=== PATIENT | male | born 1970 | race Caucasian/White ===

== ENCOUNTER 2017-10-26 21:43 | Observation (INO) ==
[2017-10-27] MEDS ORDERED: Naloxone 0.4 MG/ML INJ IVP PRN (01:11)
[2017-10-27] MEDS: *HR* OxyCODONE Immed Rel 5 MG TABLET PO PRN ×3 (01:31→17:34)
[2017-10-27] MEDS: 0.9 % Sodium Chloride 1,000 ML IVC SCH ×2 (01:32→09:21)
[2017-10-27] MEDS ORDERED: Ondansetron 4 MG/2 ML VIAL IVP PRN (02:20)
[2017-10-27] MEDS ORDERED: OXYCODONE Oral CONC 10 MG/0.5 ML ORAL.SYG SL PRN ×2 (02:21)
[2017-10-27 02:32] LABS: Basophils % 0.2 %; Eosinophils # 0.2 K/mcL (0.0-0.6); Hematocrit 46.7 % (37.5-50.1); Hemoglobin 15.9 g/dL (12.9-16.9); Immature Granulocytes % 0.5 % (0-4); Lymphocytes # 1.7 K/mcL (0.6-4.6); Mean Corpuscular Hemoglobin 27.3 pg (28.0-33.3); Mean Corpuscular Volume 80.1 fL (83.0-100.0); Mean Platelet Volume 9.9 fL (9.4-12.4); Monocytes # 0.9 K/mcL (0.0-1.3); Monocytes % 6.1 %; Neutrophils # 12.3 K/mcL (1.6-8.9); Platelet Count 272 K/mcL (140-400); Red Blood Count 5.83 M/mcL (4.19-5.50); Red Cell Distribution Width 13.3 % (11.5-14.5); Segmented Neutrophils % 81.2 %
--- NOTE | 2017-10-27 02:47 | Internal Med History&Physical ---
<Jamir Spears - Last Filed: 10/27/17 02:42> Date of Encounter: 10/27/17 Time of Encounter: 02:42 Internal Medicine - H&P: HPI Chief complaint: Abdominal pain Admitted From: Home Plans for Post Hospital Care: Home History of present illness: Mr. Tyrell Holguin is a 46 year old male presented chief complaint of abdominal pain that has been there for 5 weeks. Patient initially presented to [place] [facility]. Abdominal pain is located at the level of umbilicus and below bilaterally described as a sharp, cramping pain that is intermittent, worsens with bowel movement, position. Patient's pain radiates to the back. Reports that improves with Tylenol. Patient denies fevers, chills, nausea, vomiting, diarrhea, melena, hematochezia. Patient denies travel, sick contacts. Patient went CT abdomen pelvis which showed diverticulitis with 2 sigmoid abdominal abscesses with free fluid in the pelvis. Dr. Chaparro was consulted and patient was transferred to [place] for further care. He was given Cipro, Flagyl. 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 Past Med Surg Social Fam HX - Past Medical History Medical history: no medical history Psychiatric history: no psych history - Past Surgical History Additional surgical history: fistula removed - Social History Smoking Status: Never smoker Smokeless Tobacco Status: No Alcohol use: none Drug use: none Occupational status: employed Current living situation: Home - Independent Activity Level: Independent ambulation - Family History Father Hx Family Cardiac Disorders: Yes Mother Hx Family Cardiac Disorders: Yes Internal Medicine - H&P: Meds No Known Home Drugs 10/26/17 [History] 3 Allergy/AdvReac Type Severity Reaction Status Date / Time No Known Allergies Allergy Verified 10/26/17 17:47 All Systems PM: A 10-system review of systems was performed and is negative for pertinent findings except as documented above in the HPI. Review of systems: Constitutional: Denies fever, chills HEENT: Denies headache, vision changes, neck pain, sore throat, rhinorrhea Heart: Denies chest pain palpitations Lungs: Denies shortness of breath cough Abdomen: Ports abdominal pain. Denies nausea, vomiting, diarrhea Back: Denies back pain Kidney: Denies dysuria, hematuria Skin: Denies rash, lesions Extremities: Denies swelling, pain Neuro: Denies numbness and tingling - Constitutional Vitals: Temp Pulse Resp BP Pulse Ox 98.7 F 78 16 178/98 96 10/27/17 01:10 10/27/17 01:10 10/27/17 01:10 10/27/17 01:10 10/27/17 01:10 Exam: General: Pleasant without distress HEENT: Head atraumatic, normocephalic, EOMI, PERRL, neck nontender to palpation , absent lymphadenopathy, Moist Mucous Membranes, Heart: Regular rate and rhythm with no murmur Lungs: Clear to auscultation bilaterally Abdomen: Soft, tender bilateral lower quadrants, distended, positive bowel sounds Skin: warm and dry, absent rash Extremities: Absent pedal edema, Neuro: Cranial nerves II through XII intact, UE and LE sensation equal bilaterally, UE and LEstrength 5/5, alert oriented 3, Gait intact, rhombergs sign negative, Vascular: Pedal and radial pulses 2 out of 4 Internal Med - H&P Results - Labs CBC & Chem 7: 10/27/17 02:19 Labs: Short CBC 10/27/17 Range/Units 02:19 WBC 15.1 H (4.3-11.1) K/mcL Hgb 15.9 (12.9-16.9) g/dL Hct 46.7 (37.5-50.1) % Plt Count 272 (140-400) K/mcL Neutrophils # 12.3 H (1.6-8.9) K/mcL - Assessment and plan (1) Diverticulitis Current Visit: Yes Status: Acute Assessment and plan: 46-year-old male presents with abdominal pain for the last [address] abdomen pelvis which showed extensive sigmoid diverticulosis, enhancing fluid collection deep in the pelvis measuring 2.7 x 1.4 cm and free fluid in the pelvis with a deep pelvic abscess measuring 3.1 x 2.2 cm he reports he had a "fistula" in the abdomen which was repaired in [place] around 4-5 years ago. Patient has elevated white cell count of 14 Lactic acid is 1.5 Does not meet sepsis criteria Surgery was consulted and patient was started on IV antibiotics Blood cultures have been drawn Patient was started on Cipro Flagyl Nothing by mouth Zofran for nausea IV fluids (2) Intestinal diverticular abscess Current Visit: Yes Status: Acute Assessment and plan: As mentioned above (3) Right lower lobe pulmonary nodule Current Visit: Yes Status: Acute Assessment and plan: CT abdomen pelvis showed a 6 mm noncalcified pulmonary nodule in the lateral aspect of the right lower lobe Patient denies history of smoking but reports secondhand exposure from family Will advise 6 month follow-up with PCP for repeat CAT scan (4) DVT prophylaxis Current Visit: Yes Status: Acute Assessment and plan: Heparin subcutaneous - Time Spent With Patient Total time spent is greater than 50% in coordination of care (as documented) at patient's floor/unit and/or counseling patient: <Uriel Marks - Last Filed: 10/27/17 08:10> Date of Encounter: 10/27/17 Internal Medicine - H&P: HPI History of present illness: Mr. Tyrell Holguin is a 46 year old male All Systems PM: A 10-system review of systems was performed and is negative for pertinent findings except as documented above in the HPI. - Constitutional Vitals: Temp Pulse Resp BP Pulse Ox 98.9 F 80 16 154/86 96 10/27/17 07:53 10/27/17 07:53 10/27/17 07:53 10/27/17 07:53 10/27/17 07:53 Internal Med - H&P Results - Labs CBC & Chem 7: 10/27/17 02:19 10/27/17 02:19 Labs: Short CBC 10/27/17 Range/Units 02:19 WBC 15.1 H (4.3-11.1) K/mcL Hgb 15.9 (12.9-16.9) g/dL Hct 46.7 (37.5-50.1) % Plt Count 272 (140-400) K/mcL Neutrophils # 12.3 H (1.6-8.9) K/mcL BMP 10/27/17 02:19 Sodium 135 L Potassium 4.3 Chloride 102 Carbon Dioxide 26 BUN 14 Creatinine 0.87 Glucose 139 H Calcium 8.9 Liver Function 10/27/17 Range/Units 02:19 Total Bilirubin 0.9 (0.3-1.0) mg/dL AST 12 L (13-39) Units/L ALT 25 (7-52) Units/L Alkaline Phosphatase 47 (34-104) Units/L Albumin 4.1 (3.5-5.7) g/dL - Assessment and plan (1) Diverticulitis Current Visit: Yes Status: Acute (2) Intestinal diverticular abscess Current Visit: Yes Status: Acute (3) Right lower lobe pulmonary nodule Current Visit: Yes Status: Acute (4) DVT prophylaxis Current Visit: Yes Status: Acute - Time Spent With Patient Total time spent is greater than 50% in coordination of care (as documented) at patient's floor/unit and/or counseling patient: - Attending Attestation Patient seen and examined. Case discussed with resident. Acute diverticulitis with abscess and free fluid. Surgery aware. We will continue antibiotics for now. Surgery following the morning.
[2017-10-27 02:52] LABS: Alanine Aminotransferase 25 Units/L (7-52); Albumin 4.1 g/dL (3.5-5.7); Albumin/Globulin Ratio 1.6 (1.1-2.2); Alkaline Phosphatase 47 Units/L (34-104); Aspartate Amino Transferase 12 Units/L (13-39); BUN/Creatinine Ratio 16 (6-26); Bilirubin,Total 0.9 mg/dL (0.3-1.0); Blood Urea Nitrogen 14 mg/dL (6-20); Calcium 8.9 mg/dL (8.6-10.3); Carbon Dioxide 26 mEq/L (23-29); Chloride 102 mEq/L (98-107); Globulin 2.5 g/dL (2.4-3.5); Glucose 139 mg/dL (70-105); Osmolality,Calculated 283 (280-300); Potassium 4.3 mEq/L (3.5-5.1); Sodium 135 mEq/L (136-145); Total Protein 6.6 g/dL (6.4-8.9); eGFR For Non-African Americans > 60 (> 60)
[2017-10-27] MEDS: *HR* Heparin 5,000 UNIT/ML VIAL SQ SCH ×3 (05:38→20:51)
[2017-10-27] MEDS: MetroNIDAZOLE 500 MG/100 ML 500 MG/100 ML BAG IVPB SCH ×3 (05:39→17:34)
--- NOTE | 2017-10-27 13:41 | Internal Med Progress Note ---
Hospitalist Progress Note - Encounter Date of Encounter: 10/27/17 Time of Encounter: 13:33 - Subjective Interval History: Continue to have left lower quadrant abdominal pain, intermittent nausea without vomiting. Reports the pain of an ongoing for approximately 5 weeks. No acute changes overnight otherwise. - Exam Vitals: Temp Pulse Resp BP Pulse Ox 98.5 F 78 15 178/100 95 10/27/17 10:56 10/27/17 10:56 10/27/17 10:56 10/27/17 10:56 10/27/17 10:56 Exam: PHYSICAL EXAMINATION: GENERAL: The patient is a well-developed, well-nourished male with mild distress due to abdominal discomfort. He is alert and oriented x3. HEENT: Head is normocephalic and atraumatic. Extraocular muscles are intact. Pupils are equal, round, and reactive to light and accommodation. NECK: Supple. No carotid bruits. No lymphadenopathy or thyromegaly. LUNGS: Clear to auscultation. HEART: Regular rate and rhythm without murmur. ABDOMEN: Soft, and nondistended. Positive bowel sounds. No hepatosplenomegaly was noted. Mild left lower quadrant tenderness to palpation, without rebound, abdomen does not appear to be acute - Assessment and Plan (1) Diverticulitis Current Visit: Yes Status: Acute Assessment and Plan: 46-year-old male presents with abdominal pain for the last [address] abdomen pelvis which showed extensive sigmoid diverticulosis, enhancing fluid collection deep in the pelvis measuring 2.7 x 1.4 cm and free fluid in the pelvis with a deep pelvic abscess measuring 3.1 x 2.2 cm he reports he had a "fistula" in the abdomen which was repaired in [place] around 4-5 years ago. Leukocytosis with WBC of 14 Lactic acid is 1.5 Does not meet sepsis criteria Surgery to see in consultation-awaiting recommendations continue ABX cipro and flagyl Blood cultures pending; follow Patient was started on Cipro Flagyl Nothing by mouth Zofran for nausea IV fluids analgesia (2) Intestinal diverticular abscess Current Visit: Yes Status: Acute Assessment and Plan: above (3) Right lower lobe pulmonary nodule Current Visit: Yes Status: Acute Assessment and Plan: CT abdomen pelvis showed a 6 mm noncalcified pulmonary nodule in the lateral aspect of the right lower lobe no concerning symptoms like weight loss, fatigue, malaise, night sweats, hematemesis, chronic cough or pulmonary complaints Patient denies h/o smoking, positive for secondhand exposure from family Will advise 6 month follow-up with PCP for repeat CAT scan (4) DVT prophylaxis Current Visit: Yes Status: Acute Assessment and Plan: Continue sc heparin - Time Spent with Patient Total time spent is greater than 50% in coordination of care (as documented) at patient's floor/unit and/or counseling patient: less than 15 minutes Plan of Care Discussed with: patient Internal Medicine: Result - Labs CBC & Chem 7: 10/27/17 02:19 10/27/17 02:19 Labs: Short CBC 10/27/17 Range/Units 02:19 WBC 15.1 H (4.3-11.1) K/mcL Hgb 15.9 (12.9-16.9) g/dL Hct 46.7 (37.5-50.1) % Plt Count 272 (140-400) K/mcL Neutrophils # 12.3 H (1.6-8.9) K/mcL BMP 10/27/17 02:19 Sodium 135 L Potassium 4.3 Chloride 102 Carbon Dioxide 26 BUN 14 Creatinine 0.87 Glucose 139 H Calcium 8.9 Liver Function 10/27/17 Range/Units 02:19 Total Bilirubin 0.9 (0.3-1.0) mg/dL AST 12 L (13-39) Units/L ALT 25 (7-52) Units/L Alkaline Phosphatase 47 (34-104) Units/L Albumin 4.1 (3.5-5.7) g/dL Consult Discharge Plan - Plan Referrals: Wilbert Koenig MD [Primary Care Provider] -
--- NOTE | 2017-10-27 16:18 | General Surgery Consult Note ---
Date of Encounter: 10/27/17 Time of Encounter: 16:00 Assessment and Plan (1) Perforation of sigmoid colon due to diverticulitis Current Visit: Yes Status: Acute Continue with conservative management at this time including: Bowel rest- may have limited ice chips and popsicles IV fluids IV antibiotics- cipro and flagyl Serial abdominal exams Supportive care and pain control PPI therapy daily IS every 1 hour while awake Repeat am labs- CBC, BMP Surgery will continue to follow and assess progress (2) Intestinal diverticular abscess Current Visit: Yes Status: Acute Fluid collections are no amenable to IR drainage at this time IV antibiotics- cipro and flagyl (3) Right lower lobe pulmonary nodule Current Visit: Yes Status: Acute Patient will need follow-up imaging- follow guidelines Managment per PCP (4) DVT prophylaxis Current Visit: Yes Status: Acute Heparin 5,000 units SQ twice daily for DVT prophylaxis History of Present Illness Consult date: 10/27/17 Reason for consult: abdominal pain (Perforated diverticulitis with abscess) Requesting physician: Jamir Spears History of present illness: Mr. Tyrell Holguin is a 46 year old male who reported to the emergency department last evening with complaints of abdominal pain. He states that he had his first episode of abdominal pain approximately 5 weeks ago. He states that the pain was generalized and resolved after a couple days without treatment. He states that he did have recurrence of the pain after eating chipotle a few weeks ago. He states that the pain lasted for approximately 1 week and did resolve spontaneously without treatment. He states that he had recurrence of the same pain approximately 1 week ago after eating [employer]. He states that the pain is the worst that it has ever been with this episode. He reports central and left-sided abdominal pain which is sharp and stabbing. He states that he is unable to get any relief from the pain. Denies any specific aggravating factors. He admits to nausea and vomiting with this episode. Denies any hematemesis or coffee-ground emesis. He does admit to having fevers and chills. He states that he has had difficulty moving his bowels over the last 24 hours and that he is not been able to pass flatus today. He states that he did have a colonoscopy complete 5 years ago for evaluation of what he describes as an anal fistula. He denies any significant findings with that colonoscopy. He has had a CAT scan evaluation during his workup which shows evidence of significant sigmoid diverticulitis with abscess formation in the pelvis. We have been asked to see and evaluate the patient for further recommendations. Past Med Surg Social Fam HX - Past Medical History Source: patient, old records reviewed Medical history: hypertension Additional medical history: Chronic back pain, Morbid obesity Psychiatric history: no psych history - Past Surgical History Surgical History: other Additional surgical history: fistula removed, colonoscopy approximately 5 years ago - Social History Smoking Status: Never smoker Smokeless Tobacco Status: No Alcohol use: none Drug use: none Occupational status: employed Current living situation: Home - Independent Activity Level: Independent ambulation - Family History Father Living Status: Still Living Hx Family Cardiac Disorders: Yes (AR at 65 years old) Mother Living Status: Still Living Hx Family Cardiac Disorders: Yes Hx Family Endocrine Disorder: Yes (Diabetes Mellitus) Hx Family Neurologic Disorders: Yes (CVA) Medications and Allergies No Known Home Drugs 10/26/17 [History] 3 Allergy/AdvReac Type Severity Reaction Status Date / Time No Known Allergies Allergy Verified 10/26/17 17:47 Review of Systems All systems PM: reviewed and no additional remarkable complaints except as stated (in the HPI) All systems PM: The remainder of the systems were reviewed and are negative General Surgery Exam Initial Vital Signs Temp Pulse Resp BP Pulse Ox 98.7 F 78 16 178/98 96 10/27/17 01:10 10/27/17 01:10 10/27/17 01:10 10/27/17 01:10 10/27/17 01:10 - General physical appearance well developed, well nourished, moderate pain - Eyes PERRL, normal ocular movement - ENT normal mucosa, atraumatic, normocephalic - Neck trachea midline - Respiratory normal respiratory effort, clear to auscultation - Cardiovascular Cardiovascular exam: Present: RRR, 15, 16 - Abdomen Abdomen general surgery: Present: soft, tender Abdominal Tenderness: Present: LLQ, suprapubic - Integumentary Integumentary general surgery: Present: warm and dry, no abnormal pigmentation - Neurologic Present: CN 2-12 grossly intact - Psychiatric Psychiatric general surgery: Present: A&Ox3 Exam Initial Vital Signs Temp Pulse Resp BP Pulse Ox 98.7 F 78 16 178/98 96 10/27/17 01:10 10/27/17 01:10 10/27/17 01:10 10/27/17 01:10 10/27/17 01:10 Results - Labs 10/27/17 02:19 10/27/17 02:19 Abnormal lab results WBC 15.1 K/mcL (4.3-11.1) H 10/27/17 02:19 RBC 5.83 M/mcL (4.19-5.50) H 10/27/17 02:19 MCV 80.1 fL (83.0-100.0) L 10/27/17 02:19 MCH 27.3 pg (28.0-33.3) L 10/27/17 02:19 Neutrophils # 12.3 K/mcL (1.6-8.9) H 10/27/17 02:19 Sodium 135 mEq/L (136-145) L 10/27/17 02:19 Glucose 139 mg/dL (70-105) H 10/27/17 02:19 AST 12 Units/L (13-39) L 10/27/17 02:19 Diabetes panel 10/27/17 Range/Units 02:19 Sodium 135 L (136-145) mEq/L Potassium 4.3 (3.5-5.1) mEq/L Chloride 102 (98-107) mEq/L Carbon Dioxide 26 (23-29) mEq/L BUN 14 (6-20) mg/dL Creatinine 0.87 (0.70-1.30) mg/dL Glucose 139 H (70-105) mg/dL Calcium 8.9 (8.6-10.3) mg/dL AST 12 L (13-39) Units/L ALT 25 (7-52) Units/L Alkaline Phosphatase 47 (34-104) Units/L Albumin 4.1 (3.5-5.7) g/dL Calcium panel 10/27/17 Range/Units 02:19 Calcium 8.9 (8.6-10.3) mg/dL Albumin 4.1 (3.5-5.7) g/dL Pituitary panel 10/27/17 Range/Units 02:19 Sodium 135 L (136-145) mEq/L Potassium 4.3 (3.5-5.1) mEq/L Chloride 102 (98-107) mEq/L Carbon Dioxide 26 (23-29) mEq/L BUN 14 (6-20) mg/dL Creatinine 0.87 (0.70-1.30) mg/dL Glucose 139 H (70-105) mg/dL Calcium 8.9 (8.6-10.3) mg/dL Adrenal panel 10/27/17 Range/Units 02:19 Sodium 135 L (136-145) mEq/L Potassium 4.3 (3.5-5.1) mEq/L Chloride 102 (98-107) mEq/L Carbon Dioxide 26 (23-29) mEq/L BUN 14 (6-20) mg/dL Creatinine 0.87 (0.70-1.30) mg/dL Glucose 139 H (70-105) mg/dL Calcium 8.9 (8.6-10.3) mg/dL Total Bilirubin 0.9 (0.3-1.0) mg/dL AST 12 L (13-39) Units/L ALT 25 (7-52) Units/L Alkaline Phosphatase 47 (34-104) Units/L Albumin 4.1 (3.5-5.7) g/dL All other labs normal. - Imaging CT scan - abdomen: report reviewed CT scan - pelvis: report reviewed Consult Discharge Plan - Plan Referrals: Wilbert Koenig MD [Primary Care Provider] - - Attending Attestation For this encounter, I have reviewed the [employer]TER or PA documentation, treatment plan, and medical decision making; and I have had face to face time with this patient.
[2017-10-28] MEDS: MetroNIDAZOLE 500 MG/100 ML 500 MG/100 ML BAG IVPB SCH ×3 (00:21→12:04)
[2017-10-28 05:40] LABS: Basophils % 0.1 %; Eosinophils # 0.1 K/mcL (0.0-0.6); Eosinophils % 0.7 %; Hematocrit 46.2 % (37.5-50.1); Hemoglobin 15.4 g/dL (12.9-16.9); Immature Granulocytes % 0.5 % (0-4); Lymphocytes # 1.3 K/mcL (0.6-4.6); Lymphocytes % 8.8 %; Mean Corpuscular HGB Conc 33.3 g/dL (31.6-35.5); Mean Corpuscular Hemoglobin 26.9 pg (28.0-33.3); Mean Corpuscular Volume 80.6 fL (83.0-100.0); Mean Platelet Volume 10.2 fL (9.4-12.4); Monocytes % 7.2 %; Neutrophils # 11.9 K/mcL (1.6-8.9); Platelet Count 260 K/mcL (140-400); Red Blood Count 5.73 M/mcL (4.19-5.50); Red Cell Distribution Width 13.3 % (11.5-14.5); Segmented Neutrophils % 82.7 %
[2017-10-28 05:55] LABS: BUN/Creatinine Ratio 15 (6-26); Blood Urea Nitrogen 14 mg/dL (6-20); Calcium 8.7 mg/dL (8.6-10.3); Carbon Dioxide 23 mEq/L (23-29); Chloride 104 mEq/L (98-107); Glucose 129 mg/dL (70-105); Osmolality,Calculated 282 (280-300); Potassium 4.1 mEq/L (3.5-5.1); Sodium 135 mEq/L (136-145); eGFR For Non-African Americans > 60 (> 60)
[2017-10-28] MEDS: *HR* Heparin 5,000 UNIT/ML VIAL SQ SCH ×2 (06:14→14:07)
[2017-10-28] MEDS: *HR* OxyCODONE Immed Rel 5 MG TABLET PO PRN (06:22)
--- NOTE | 2017-10-28 11:33 | General Surgery Progress Note ---
Date of Encounter: 10/28/17 Time of Encounter: 11:15 - Assessment and Plan (1) Perforation of sigmoid colon due to diverticulitis Current Visit: Yes Status: Acute Continue with conservative management at this time including: Full liquids today Dietary consult for education on lower fiber diet- low fiber for the next 8 weeks IV antibiotics- cipro and flagyl Serial abdominal exams Supportive care and pain control PPI therapy daily IS every 1 hour while awake Repeat am labs- CBC Surgery will continue to follow and assess progress Plan for outpatient follow up with Dr. Chaparro in [place] 11/10/17 at 0830am (2) Intestinal diverticular abscess Current Visit: Yes Status: Inactive Fluid collections are no amenable to IR drainage at this time IV antibiotics- cipro and flagyl (3) Right lower lobe pulmonary nodule Current Visit: Yes Status: Inactive F/U outpatient with PCP Follow recommended guidelines (4) DVT prophylaxis Current Visit: Yes Status: Acute Heparin 5,000 units SQ twice daily for DVT prophylaxis Subjective Patient reports: no new complaints, feels better, still having pain, pain is less, tolerating liquids well (ice and popsicles), voiding w/o difficulty, flatus, bowel movement (small bowel movement this morning), afebrile Objective Vital Signs - Last 8 Hours Temp Pulse Resp BP Pulse Ox 10/28/17 07:10 98.8 F 74 16 134/72 95 Intake and Output 10/27/17 10/28/17 10/28/17 23:59 07:59 15:59 Intake Total 1300 / 1300 200 / 200 200 / 200 Output Total 500 / 500 Balance 800 / 800 200 / 200 200 / 200 Intake: IV Fluids 1300 / 1300 200 / 200 200 / 200 0.9 % Sodium Chloride 1,000 ML 1000 / 1000 @ 125 mls/hr IVC .Q8H [facility] Rx#: [id number] Cipro Premix 400 MG/200 ML 400 200 / 200 200 / 200 mg In 200 ml @ 200 mls/hr IVPB Q12H [facility] Rx#:[id number] Flagyl Premix 500 MG/100 ML 500 100 / 100 200 / 200 mg In 100 ml @ 100 mls/hr IVPB Q6HR [facility] Rx#:[id number] Oral 0 / 0 Output: Urine 500 / 500 Other: Meal NPO Percent of Meal Consumed 0% Weight 124.2 kg Patient Weight 10/28/17 23:59 Weight 124.2 kg - General physical appearance well developed, well nourished, no distress - Eyes normal ocular movement - ENT normal mucosa, atraumatic, normocephalic - Neck Neck exam: trachea midline - Respiratory normal expansion, normal respiratory effort, clear to auscultation - Cardiovascular Cardiovascular exam: Present: RRR - Abdomen Abdomen: Present: bowel sounds present, soft, tender (significantly improved) Abdominal Tenderness: suprapubic - Neurologic CN 2-12 grossly intact - Musculoskeletal normal gait, normal posture - Psychiatric oriented to time, oriented to person, oriented to place, speech is normal, memory intact - Labs 10/28/17 05:10 10/28/17 05:10 Diabetes panel 10/28/17 Range/Units 05:10 Sodium 135 L (136-145) mEq/L Potassium 4.1 (3.5-5.1) mEq/L Chloride 104 (98-107) mEq/L Carbon Dioxide 23 (23-29) mEq/L BUN 14 (6-20) mg/dL Creatinine 0.92 (0.70-1.30) mg/dL Glucose 129 H (70-105) mg/dL Calcium 8.7 (8.6-10.3) mg/dL Calcium panel 10/28/17 Range/Units 05:10 Calcium 8.7 (8.6-10.3) mg/dL Pituitary panel 10/28/17 Range/Units 05:10 Sodium 135 L (136-145) mEq/L Potassium 4.1 (3.5-5.1) mEq/L Chloride 104 (98-107) mEq/L Carbon Dioxide 23 (23-29) mEq/L BUN 14 (6-20) mg/dL Creatinine 0.92 (0.70-1.30) mg/dL Glucose 129 H (70-105) mg/dL Calcium 8.7 (8.6-10.3) mg/dL Adrenal panel 10/28/17 Range/Units 05:10 Sodium 135 L (136-145) mEq/L Potassium 4.1 (3.5-5.1) mEq/L Chloride 104 (98-107) mEq/L Carbon Dioxide 23 (23-29) mEq/L BUN 14 (6-20) mg/dL Creatinine 0.92 (0.70-1.30) mg/dL Glucose 129 H (70-105) mg/dL Calcium 8.7 (8.6-10.3) mg/dL Consult Discharge Plan - Plan Additional Instructions: Low fiber diet for the next 8 weeks Referrals: Wilbert Koenig MD [Primary Care Provider] - (Requested a follow up appointment in 7-10 days. ) Theodore Chaparro DO [Partnered Physician] - 11/10/17 8:30 am (Hospital follow-up in [place] office) Prescriptions: Ciprofloxacin [Cipro] 500 mg PO BID #28 tablet metroNIDAZOLE [Flagyl] 500 mg PO TID #42 tablet
[2017-10-28] MEDS ORDERED: OXYCODONE Oral CONC 10 MG/0.5 ML ORAL.SYG SL PRN (13:13)
--- NOTE | 2017-10-28 15:24 | Discharge Summary ---
- NOTES TO OUTPATIENT PROVIDER Notes to Outpatient Provider: Presented with perforated sigmoid colon due to diverticulitis. Patient discharged with ciprofloxacin and Flagyl. Patient has outpatient follow-up with Dr. Martinez in [place] 11/10/17 at 0 8:30 AM, please ensure follow-up. Blood cultures are pending at time of discharge. Also of note, incidental 6 mm pulmonary nodule found on CT, recommend outpatient follow- up 3-6 months. Orders not resulted at time of discharge: Pending orders 10/27/17 02:19 Culture,Blood [BC] Stat 10/29/17 04:00 Basic Metabolic Panel AM 0400 Complete Blood Count [HEME] AM 0400 10/30/17 04:00 Basic Metabolic Panel AM 0400 Complete Blood Count [HEME] AM 0400 Date of Encounter: 10/28/17 Time of Encounter: 15:22 - Discharge Diagnosis (1) Perforation of sigmoid colon due to diverticulitis Priority: Primary Status: Acute Assessment and Plan: 46-year-old male presents with abdominal pain x [address] abdomen pelvis which showed extensive sigmoid diverticulosis, enhancing fluid collection deep in the pelvis measuring 2.7 x 1.4 cm and free fluid in the pelvis with a deep pelvic abscess measuring 3.1 x 2.2 cm he reports he had a "fistula" in the abdomen which was repaired in [place] around 4-5 years ago. Leukocytosis with WBC of 14.4 Surgery seeing in consultation during her stay-recommendations continue ABX cipro and flagyl Blood cultures pending at discharge Patient was started on Cipro Flagyl Low residue diet for the next 8 weeks Offered medication for pain control however, patient declined Continue PPI therapy (2) Diverticulitis Priority: Secondary Status: Inactive (3) Intestinal diverticular abscess Priority: Secondary Status: Inactive Assessment and Plan: See above (4) Right lower lobe pulmonary nodule Priority: Secondary Status: Inactive Assessment and Plan: CT abdomen pelvis showed a 6 mm noncalcified pulmonary nodule in the lateral aspect of the right lower lobe Patient aware of pulmonary nodule after yesterday's discussion. no concerning symptoms like weight loss, fatigue, malaise, night sweats, hematemesis, chronic cough or pulmonary complaints Patient denies h/o smoking, positive for secondhand exposure from family Will advise 6 month follow-up with PCP for repeat CAT scan (5) DVT prophylaxis Priority: Secondary Status: Acute Assessment and Plan: Continue SQ heparin Hospital course: Mr. Tyrell Holguin is a 46 year old male who presented with abdominal pain found to have perforation of sigmoid colon due to diverticulitis. CT imaging of abdomen and pelvis reveals acute sigmoid diverticulitis with 2 peripherally enhancing fluid collections measuring 2.7 x 1.4 cm and the other measuring 3.1 x 2.2 cm. Treated with Cipro and Flagyl as well as PPI and symptomatic management. Abdomen has remained non-acute and he has had an uneventful hospital course. Surgery seeing in consultation throughout stay and recommend continue abx and f/u with Dr. Chaparro on 11/10/17. Incidental findings of 6 mm noncalcified pulmonary nodule in the right lower lobe, patient has been recommended to have follow-up in 3-6 months. Please ensure follow-up. Discharge discussed with: patient, nurse, cosmetic sales consultant - Time Spent with Patient Total time spent providing and/or coordinating discharge services: Less than 30 minutes - Discharge Medications Prescriptions: Ciprofloxacin [Cipro] 500 mg PO BID #28 tablet metroNIDAZOLE [Flagyl] 500 mg PO TID #42 tablet Home Medications: Ciprofloxacin [Cipro] 500 mg PO BID #28 tablet 10/28/17 [Rx] Omeprazole [PriLOSEC] 20 mg PO DAILY 30 Days #30 cap 10/28/17 [Rx] metroNIDAZOLE [Flagyl] 500 mg PO TID #42 tablet 10/28/17 [Rx] Allergies/Adverse Reactions: 3 Allergy/AdvReac Type Severity Reaction Status Date / Time No Known Allergies Allergy Verified 10/26/17 17:47 Date of admission: 10/27/17 00:57 Primary care physician: Wilbert Koenig MD Consults: 10/27/17 02:22 Consult to Surgery [CONS] Routine Consulting Provider: Theodore Chaparro Reason for Consult: abdominal abscess, diverticulitis Call Completed: Yes 10/28/17 11:26 consult to pony edger [Consult to Nutrition] [CONS] Routine Comment: Low fiber diet for the next 8 weeks Consulting Provider: NUTRITION Reason for Dietary Consult: Diet Education Discharging clinician: Bryon Galarza Anticipated date of discharge: 10/28/17 - Constitutional Vitals: Temp Pulse Resp BP Pulse Ox 97.9 F 89 15 165/96 97 10/28/17 11:29 10/28/17 11:29 10/28/17 11:29 10/28/17 11:29 10/28/17 11:29 Exam: . - Head Head exam: Present: atraumatic, normocephalic - Eye Eye exam: Present: PERRL, conjuntiva pink, sclera anicteric Pupils: Present: PERRL - Neck Neck exam general surgery: Present: supple, trachea midline. Absent: lymphadenopathy - Respiratory Respiratory exam: Present: CTAB. Absent: accessory muscle use, rales, rhonchi, wheezes - Cardiovascular Cardiovascular exam: Present: RRR, +S1, +S2. Absent: diastolic murmur, gallop, rubs, systolic murmur - GI/Abdominal GI/Abdominal exam: Present: normal bowel sounds, soft, tenderness (mild RLQ), no peritoneal signs. Absent: distended - Extremities Exam Extremities exam: Present: warm, radial pulses palpable and symmetrical. Absent : calf tenderness, cyanotic, pedal edema - Neurological Exam Neurological exam: Present: CN II-XII intact, oriented X3, no focal deficits. Absent: pronater drift, facial droop, speech deficit - Skin Skin exam: Present: dry, intact - Patient Status Disposition: Home, Self-Care Condition: Good Functional capacity at discharge: independent ambulation Overall status at discharge: patient is progressing back to baseline - Discharge Instructions Follow Up With: Theodore Chaparro DO [Partnered Physician] - 11/10/17 8:30 am (Hospital follow-up in [place] office) Wilbert Koenig MD [Primary Care Provider] - (Requested a follow up appointment in 7-10 days. ) Additional Instructions: Low fiber diet for the next 8 weeks - Diet and Activity Activity: increase activity as tolerated, resume usual activities as tolerated Diet: other (low residue diet)
[2017-10-28 15:32] VITALS: BP 137/88
== END 2017-10-28 16:10 | disposition home or self-care (01) ==
LOC: 3BNU
PROVIDERS: ADMIT Internal Medicine; ATTEND Internal Medicine